=== PATIENT | female | born 1930 | race Caucasian/White ===

== ENCOUNTER 2016-12-08 17:31 | Inpatient (IN) | payer MEDICARE ==
[~2016-12-08] VITALS: Ht 167.6 cm; Wt 70.4 kg
[~2016-12-08 17:31] MED LIST: CALC600T34 PO; CELE10TA9 PO; DOCU100T9 PO; FIBECHW2 CHEW; GABA300C3 PO; HYDR-3129 PO; LEVO50TA51 PO; LISI2.5T3 PO; MULTCAP20 PO; TEMA15 PO; VITATAB25 PO; [UNRECOGNIZED DRUG - CODE] PO
[2016-12-08 17:34] VITALS: BP 124/58; PULSE 81; RESP 14; TEMP 98.1; O2SAT 98
--- NOTE | 2016-12-08 19:22 | PD ---
HPI Chief Complaint: Cold / Flu Symptoms Time Seen by Provider: 19:16 Travel History International Travel<30 days: No Contact w/Intl Traveler<30days: No Traveled to known affect area: No History of Present Illness HPI The patient is an 86 year old female who presents to the [facility] emergency department with a history of having pain all over with dizziness associated with and unsteady gait that began on Wednesday. She last took her usual pain medication for her chronic back pain at 3 pm. She took hydrocodone with acetaminophen. She denies vertigo. She has generalized weakness. She reports having nausea throughout the day today. She denies any vomiting. She reports that her last BM was this AM. She denies any blood in her stool or black or tarry stools. She denies having any changes to her medication regimen. She reports that her primary care physician is Dr. Gonzales. The patient reports that she has had a mild cough recently. The patient denies any recent fevers, congestion, neck pain, chest pain, shortness of breath, abdominal pain, diarrhea, urinary symptoms, or other neurologic symptoms. [facility] Past Medical History Narrative Medical The patient's past medical history is significant for chronic back pain, history of a seizure disorder, history of hyperlipidemia, history of cervical spine injury with surgery status post fall, history of being prediabetic, history of hypothyroid disorder, history of lumbar spinal stenosis. Blood Disorders: No Cancer: Yes (SKIN) Cardiovascular Problems: Yes Chemotherapy: No Cerebrovascular Accident: No Diabetes: Yes Endocrine: No Genitourinary: No Headaches: No Hepatitis: No Hiatal Hernia: No Hypertension: Yes Immune Disorder: No Musculoskeletal: Yes (ARTHRITIS) Neurologic: No Psychiatric: No Reproductive: No Respiratory: No Migraines: No Radiation Therapy: No Seizures: Yes (FORM OF EPILEPSY TAKES TEGRETOL) Thyroid Disease: Yes Menopausal: Yes Past Surgical History Narrative Surgical The patient's past surgical history is significant for cervical spine surgery. Abdominal Surgery: No AICD: No Arteriovenous Shunt: No Cardiac Surgery: No Ear Surgery: No Endocrine Surgery: No Eye Surgery: Yes (BILAT. CATARACT SX) Genitourinary Surgery: No Gynecologic Surgery: No Insulin Pump: No Joint Replacement: No Oral Surgery: No Pacemaker: No Thoracic Surgery: No Other Surgery: Yes (C SPINE SURGERY FOR DEGENERATIVE DISC) Social History Alcohol Use: No Tobacco Use: No Substance Use: No Allergies-Medications (Allergen,Severity, Reaction): Coded Allergies: Penicillin (Verified Allergy, Unknown, 12/08/16) Reported Meds & Prescriptions Reported Meds & Active Scripts Active Reported Vitamin D-1000 (Cholecalciferol) 1,000 Unit Tab 2,000 Units PO DAILY Hydrocodone-Acetaminophen 10-325 mg Tab 1 Tab PO Q4H PRN Gabapentin 300 Mg Cap 300 Mg PO TID Temazepam 15 Mg Cap 15 Mg PO HS PRN Levothyroxine (Levothyroxine Sodium) 50 Mcg Tab 50 Mcg PO DAILY Lovastatin 10 Mg Tab 10 Mg PO HS Calcium 600+D Plus Minerals (Calcium Carbonate-Vitamin D W/Minerals) 600-400 Mg- Unit Tab 1 Tab PO DAILY Aspirin 81 Mg Chew 81 Mg CHEW DAILY Lisinopril 2.5 Mg Tab 2.5 Mg PO DAILY Citalopram (Citalopram Hydrobromide) 10 Mg Tab 10 Mg PO DAILY Review of Systems Except as stated in HPI: all other systems reviewed are Neg General / Constitutional: No: Fever Eyes: No: Visual changes HENT: No: Headaches, Congestion Cardiovascular: No: Chest Pain or Discomfort Respiratory: Positive: Cough, No: Shortness of Breath Gastrointestinal: Positive: Nausea (1 st day.), No: Vomiting, Diarrhea, Abdominal Pain, Loss of Appetite Genitourinary: No: Urgency, Frequency, Dysuria Musculoskeletal: No: Pain Skin: No Rash Neurologic: Positive: Dizziness, No: Weakness, Focal Abnormalities, Change in Mentation, Slurred Speech, Sensory Disturbance Psychiatric: No: Depression Endocrine: No: Polydipsia Hematologic/Lymphatic: No: Easy Bruising Physical Exam Narrative General: The patient is a well-developed well-nourished female in no acute distress. Head and Neck exam: Head is normocephalic atraumatic. Eyes: EOMI, pupils are equal round and reactive to light. Nose: Midline septum with pink mucous membranes Mouth: Dentition unremarkable. Moist mucus membranes. Posterior oropharynx is not erythematous. No tonsillar hypertrophy. Uvula midline. Airway patent. Neck: No palpable lymphadenopathy. No nuchal rigidity. No thyromegaly. Cardiovascular: Irregularly irregular with rate control without murmurs, gallops, or rubs. No pulse deficit to the extremities. Lungs: Clear to auscultation on the right, decreased breath sounds in the left lung base. No wheezes, rhonchi, or crackles are audible. Abdomen: Soft, without tenderness to palpation in all 4 quadrants of the abdomen. No guarding, rebound, or rigidity. Normal bowel sounds are audible. Extremities: No clubbing, cyanosis, or edema. 2+ pulses in all 4 extremities. No calf tenderness on palpation. Back: No spinous process tenderness to palpation. No costovertebral angle tenderness to palpation. Neurologic Exam: Cranial nerves 2-12 were intact on exam. Strength is 5/5 in all 4 extremities. No sensory deficits noted. Skin Exam: No rash noted. Intact skin that is warm and dry. Data Data Last Documented VS Vital Signs Date Time Temp Pulse Resp B/P Pulse Ox O2 Delivery O2 Flow Rate FiO2 12/08/16 20:41 72 18 96 Room Air 12/08/16 20:28 98.2 132/78 Orders Electrocardiogram (12/08/16 19:28) Complete Blood Count With Diff (12/08/16 19:28) Comprehensive Metabolic Panel (12/08/16 19:28) Creatine Kinase (Cpk) (12/08/16 19:28) Ckmb (Isoenzyme) Profile (12/08/16 19:28) Troponin I (12/08/16 19:28) Prothrombin Time / Inr (Pt) (12/08/16 19:28) Act Partial Throm Time (Ptt) (12/08/16 19:28) C-Reactive Protein (Crp) (12/08/16 19:28) Lipase (12/08/16 19:28) Urinalysis - C+S If Indicated (12/08/16 19:28) Cath For Specimen (12/08/16 19:28) Magnesium (Mg) (12/08/16 19:28) Chest, Single Ap (12/08/16 19:28) Ct Brain W/O Iv Contrast(Rout) (12/08/16 19:28) Iv Access Insert/Monitor (12/08/16 19:28) Ecg Monitoring (12/08/16 19:28) Oximetry (12/08/16 19:28) Sodium Chlorid 0.9% 500 Ml Inj (Ns 500 M (12/08/16 19:30) Ondansetron Inj (Zofran Inj) (12/08/16 19:30) Ceftriaxone Inj (Rocephin Inj) (12/08/16 21:00) Azithromycin Inj (Zithromax Inj) (12/08/16 21:00) Lactic Acid Sepsis Protocol (12/08/16 20:55) Blood Culture (12/08/16 20:55) Admit Order (Ed Use Only) (12/08/16 21:43) Labs Laboratory Tests Test 12/08/16 12/08/16 12/08/16 20:17 20:40 21:20 White Blood Count 7.4 TH/MM3 Red Blood Count 4.12 MIL/MM3 Hemoglobin 12.5 GM/DL Hematocrit 36.5 % Mean Corpuscular Volume 88.5 FL Mean Corpuscular Hemoglobin 30.3 PG Mean Corpuscular Hemoglobin 34.3 % Concent Red Cell Distribution Width 13.6 % Platelet Count 204 TH/MM3 Mean Platelet Volume 8.9 FL Neutrophils (%) (Auto) 69.9 % Lymphocytes (%) (Auto) 16.9 % Monocytes (%) (Auto) 11.8 % Eosinophils (%) (Auto) 0.7 % Basophils (%) (Auto) 0.7 % Neutrophils # (Auto) 5.2 TH/MM3 Lymphocytes # (Auto) 1.2 TH/MM3 Monocytes # (Auto) 0.9 TH/MM3 Eosinophils # (Auto) 0.0 TH/MM3 Basophils # (Auto) 0.1 TH/MM3 CBC Comment DIFF FINAL Differential Comment Prothrombin Time 11.2 SEC Prothromb Time International 1.0 RATIO Ratio Activated Partial 24.6 SEC Thromboplast Time Sodium Level 134 MEQ/L Potassium Level 4.0 MEQ/L Chloride Level 99 MEQ/L Carbon Dioxide Level 23.1 MEQ/L Anion Gap 12 MEQ/L Blood Urea Nitrogen 14 MG/DL Creatinine 0.87 MG/DL Estimat Glomerular Filtration 62 ML/MIN Rate Random Glucose 87 MG/DL Calcium Level 9.2 MG/DL Magnesium Level 1.9 MG/DL Total Bilirubin 0.4 MG/DL Aspartate Amino Transf 17 U/L (AST/SGOT) Alanine Aminotransferase 18 U/L (ALT/SGPT) Alkaline Phosphatase 68 U/L Total Creatine Kinase 60 U/L Troponin I LESS THAN 0.02 NG/ML C-Reactive Protein 12.00 MG/DL Total Protein 7.6 GM/DL Albumin 3.7 GM/DL Lipase 53 U/L Urine Color YELLOW Urine Turbidity HAZY Urine pH 5.5 Urine Specific Cow[place] 1.023 Urine Protein 30 mg/dL Urine Glucose (UA) NEG mg/dL Urine Ketones 40 mg/dL Urine Occult Blood MOD Urine Nitrite POS Urine Bilirubin NEG Urine Urobilinogen 2.0 MG/DL Urine Leukocyte Esterase SMALL Urine RBC 2 /hpf Urine WBC 12 /hpf Urine Squamous Epithelial 1 /hpf Cells Urine Bacteria MANY /hpf Urine Hyaline Casts 3 /lpf Urine Mucus FEW /lpf Microscopic Urinalysis Comment CULTURE INDICATED Lactic Acid Level 1.5 mmol/L [facility] Medical Decision Making Medical Screen Exam Complete: Yes Emergency Medical Condition: Yes Medical Record Reviewed: Yes Interpretation(s) Last Impressions Head CT 12/08/161927 Signed Impressions: Service Date/Time: Thursday, December 08, 2016 20:44 - CONCLUSION: 1. No acute abnormality. 2. Age-related atrophy and suspected small vessel ischemic change in the white matter. Michael Foley MD Chest X-Ray 12/08/161927 Signed Impressions: Service Date/Time: Thursday, December 08, 2016 19:32 - CONCLUSION: Increased density in the left hilar region and at the left base likely related to consolidation and pneumonia. An underlying central lesion cannot be excluded. If the patient has signs of pneumonia it would be recommended the patient be treated appropriately and a follow up chest x-ray be obtained to ensure this area completely clears. If this area does not completely clear after appropriate treatment further evaluation could be performed. Michael Foley MD Differential Diagnosis Viral syndrome, versus pneumonia, versus urinary tract infection, versus electrolyte abnormality, versus acute coronary syndrome, versus intracranial abnormality. Narrative Course During the course of the patients emergency department visit, the patients history, examination, and differential diagnosis were reviewed with the patient. The patient had IV access obtained and blood work sent for analysis. The patient was placed on a cane weigher helper with oximetry and blood pressure monitoring. An EKG was done on arrival. The patient's EKG reveals a right bundle branch block which the patient has had previously, however she has frequent premature supraventricular contractions. The patient was provided normal saline a 500 mL bolus 1, Zofran 4 mg IV. The patients laboratory studies were reviewed and remarkable for a white count of 7.4, hemoglobin 12.5, platelets 204 with 11.8 monocytes. CMP is remarkable for a sodium of 134, GFR 62, CPK and troponin I are unremarkable, C-reactive protein is elevated at 12, lipase 53, PT PTT unremarkable Radiology studies were reviewed and remarkable for a chest x-ray that appears to show a consolidated infiltrate of the left lung. The patient will be given Rocephin 1 g IV, Zithromax [address] scan of the brain shows no acute abnormality. Age-related atrophy and suspected small vessel ischemic change in the white matter. Given the patient's unsteady gait and persistent nausea throughout the day, the patient will be admitted to the hospital for observation, and to start the patient on IV antibiotic for pneumonia. The patients results were discussed with the patient, including the plan of care. I explained that further testing and/ or monitoring is indicated based on the patients history, examination, and/ or laboratory findings. Therefore, I recommended admission for additional evaluation. The patient expressed understanding and was agreeable with this plan. The patient was admitted to the hospital in stable condition and sent to a bed under the care of the [facility] hospitalist. Physician Communication Physician Communication The patient's case was discussed with Dr. Rausch who did agree to admit the patient for further evaluation and treatment at this time. Diagnosis Primary Impression: Pneumonia Qualified Code: J18.1 - Pneumonia of left lower lobe due to infectious organism Additional Impressions: Unsteady gait Generalized weakness Admitting Information Admitting Physician Requests: Observation Denisha Edwards MD Dec 08, 2016 19:22
[2016-12-08] MEDS ORDERED: ONDANSETRON HCL 4 MG/2 ML VIAL IV PUSH ONE (19:30)
[2016-12-08] MEDS ORDERED: SODIUM CHLORID 0.9% 500 ML INJ 500 ML IV ONE (19:30)
--- NOTE | 2016-12-08 20:11 | RADRPT ---
EXAM DATE/TIME: 12/08/2016 19:32 [facility] COMPARISON: CHEST SINGLE AP, December 12, 2015, 6:18. INDICATIONS: Cough. MEDICAL HISTORY: Diabetes mellitus type II. SURGICAL HISTORY: None. ENCOUNTER: Initial ACUITY: 1 day PAIN SCORE: 0/10 LOCATION: Bilateral chest FINDINGS: Heart size normal. There is increased density in the left hilar region. There is also some increase d density at the left base. The right lung is grossly clear. Significant effusion is not seen. CONCLUSION: Increased density in the left hilar region and at the left base likely related to consolidation and p neumonia. An underlying central lesion cannot be excluded. If the patient has signs of pneumonia it would be recommended the patient be treated appropriately and a follow up chest x-ray be obtained to ensure this area completely clears. If this area does not completely clear after appropriate treatm ent further evaluation could be performed. Michael Foley MD on December 08, 2016 at 20:04 Board Certified Radiologist. This report was verified electronically.
[2016-12-08 20:27] VITALS: RESP 18; O2SAT 98
[2016-12-08 20:28] VITALS: BP 132/78; PULSE 75; RESP 18; TEMP 98.2; O2SAT 97
[2016-12-08] MEDS ORDERED: LEVO50TA4 PO (20:35)
[2016-12-08] MEDS ORDERED: GABA300C5 PO (20:35)
[2016-12-08] MEDS ORDERED: TEMA15CA PO (20:35)
[2016-12-08] MEDS ORDERED: LOVA10TA PO (20:35)
[2016-12-08] MEDS ORDERED: CITA10TA4 PO (20:35)
[2016-12-08] MEDS ORDERED: LISI2.5T3 PO (20:35)
[2016-12-08] MEDS ORDERED: CALCTAB33 PO (20:35)
[2016-12-08] MEDS ORDERED: HYDR-3583 PO (20:35)
[2016-12-08] MEDS ORDERED: VITA1000 PO (20:35)
[2016-12-08] MEDS ORDERED: ASPI81CH CHEW (20:35)
[2016-12-08 20:50] LABS: AUTOMATED NEUTROPHIL # 5.2 TH/MM3 (1.8-7.7); BASOPHIL # 0.1 TH/MM3 (0-0.2); BASOPHIL % 0.7 % (0.0-2.0); EOSINOPHIL % 0.7 % (0.0-4.0); HEMATOCRIT 36.5 % (35.0-46.0); HEMO FLAGS DIFF FINAL; LYMPH % 16.9 % (9.0-44.0); LYMPHOCYTE # 1.2 TH/MM3 (1.0-4.8); MEAN CELL VOLUME 88.5 FL (80.0-100.0); MEAN CORPUSCULAR HEMOGLOBIN 30.3 PG (27.0-34.0); MEAN CORPUSCULAR HGB CONC 34.3 % (32.0-36.0); MONO % 11.8 % (0.0-8.0); NEUT % 69.9 % (16.0-70.0); PLATELET COUNT 204 TH/MM3 (150-450); RED BLOOD COUNT 4.12 MIL/MM3 (4.00-5.30); RED CELL DISTRIBUTION WIDTH 13.6 % (11.6-17.2); WHITE BLOOD COUNT 7.4 TH/MM3 (4.0-11.0)
[2016-12-08] MEDS ORDERED: AZITHROMYCIN INJ 500 MG in SODIUM CHLOR 0.9% 250 ML INJ 250 ML IV ONE (21:00)
[2016-12-08] MEDS ORDERED: cefTRIAXone INJ 1,000 MG in SODIUM CHLORIDE 0.9% INJ 100 ML IV ONE (21:00)
[2016-12-08 21:02] LABS: APTT (PATIENT) 24.6 SEC (24.3-30.1); PROTHROMBIN TIME - PATIENT 11.2 SEC (9.8-11.6)
[2016-12-08 21:04] LABS: ANION GAP 12 MEQ/L (5-15); AST (GOT) 17 U/L (15-37); BICARBONATE 23.1 MEQ/L (21.0-32.0); BLOOD UREA NITROGEN 14 MG/DL (7-18); CHLORIDE 99 MEQ/L (98-107); GLOMERULAR FILTRATION RATE 62 ML/MIN (>89); MAGNESIUM 1.9 MG/DL (1.5-2.5); SODIUM (NA) 134 MEQ/L (136-145)
[2016-12-08 21:08] LABS: ALKALINE PHOSPHATASE 68 U/L (45-117); ALT (GPT) 18 U/L (10-53); TOTAL BILIRUBIN ADULT 0.4 MG/DL (0.2-1.0)
[2016-12-08 21:10] LABS: CREATINE KINASE 60 U/L (26-192)
--- NOTE | 2016-12-08 21:31 | RADRPT ---
EXAM DATE/TIME: 12/08/2016 20:44 [facility] COMPARISON: CT BRAIN W/O CONTRAST, September 09, 2012, 18:30. INDICATIONS : General malaise. RADIATION DOSE: 56.35 CTDIvol (mGy) MEDICAL HISTORY : Seizures. Hypertension. Cardiovascular disease SURGICAL HISTORY : None. ENCOUNTER: Initial ACUITY: 1 day PAIN SCALE: 4/10 LOCATION: cranial TECHNIQUE: Multiple contiguous axial images were obtained of the head. Using automated exposure control and adj ustment of the mA and/or kV according to patient size, radiation dose was kept as low as reasonably a chievable to obtain optimal diagnostic quality images. FINDINGS: CEREBRUM: The ventricles and cortical sulci are widened. There is decreased density in the cerebral white matte r. No evidence of midline shift, mass lesion, hemorrhage or acute infarction. No extra-axial fluid collections are seen. POSTERIOR FOSSA: The cerebellum and brainstem are intact. The 4th ventricle is midline. The cerebellopontine angle i s unremarkable. EXTRACRANIAL: The visualized portion of the orbits is intact. SKULL: The calvaria is intact. No evidence of skull fracture. CONCLUSION: 1. No acute abnormality. 2. Age-related atrophy and suspected small vessel ischemic change in the white matter. Michael Foley MD on December 08, 2016 at 21:29 Board Certified Radiologist. This report was verified electronically.
[2016-12-08 21:49] LABS: BACTERIA, URINE MANY /hpf; BLOOD, URINE MOD (NEG); COMMENT (UR) CULTURE INDICATED; CULTURE IF INDICATED CULTURE INDICATED; GLUCOSE,URINE NEG (NEG); HYALINE CAST, URINE 3 /lpf (RARE); KETONE, URINE 40 mg/dL (NEG); MUCUS URINE FEW /lpf (OCC); PH, URINE 5.5 (5.0-8.5); SQUAMOUS EPITHELIAL CELL URINE 1 /hpf (0-5); URINE COLOR YELLOW (YELLW/STRAW)
[2016-12-08 21:50] LABS: NITRITE,URINE POS (NEG)
[2016-12-08] MEDS ORDERED: SODIUM CHLORIDE 0.9% FLUSH 5 ML FLUSH FLUSH PRN (22:30)
[2016-12-08] MEDS ORDERED: TEMAZEPAM 15 MG CAP PO PRN (22:30)
[2016-12-08] MEDS ORDERED: NALOXONE HCL 0.4 MG/ML AMP IV PRN (22:30)
[2016-12-08] MEDS ORDERED: ACETAMINOPHEN 325 MG TAB PO PRN (22:30)
[2016-12-08] MEDS ORDERED: BISACODYL 10 MG SUPP PR PRN (22:30)
--- NOTE | 2016-12-08 22:37 | HHI.HP ---
HPI Service [facility] Hospitalists Primary Care Physician Umang Gonzales Admission Diagnosis Pneumonia, generalized weakness with unsteady gait Chief Complaint: weakness cough dizziness since wednesday Travel History International Travel<30 Days: No Contact w/Intl Traveler <30 Da: No Traveled to Known Affected Are: No History of Present Illness 86 y/o white female who has history of chronic neck and back pain who since wednesday has had increasing unsteady gait,nausea ,mild non productive cough . Family brought patient to er and on chest xray has left hilar infiltrate and also UTI will admit to observation and start antibiotics. Patient denies shortness of breath ,chest pain ,dysuria. Review of Systems Musculoskeletal: COMPLAINS OF: Joint pain, Muscle aches Other generalized weakness Past Family Social History Past Medical History chronic back pain,seizure disorder,hyperlipidemia,hypertension Past Surgical History cervical spine surgery,cataract Reported Medications hydrocodone 10/325 qid,gabapentin 300 tid,temazepam 15,[id number],asa 81, lisinopril 2.5,citalopram 10 vit d Allergies: Coded Allergies: Penicillin (Verified Allergy, Unknown, 12/08/16) Social History NS,ND Physical Exam Vital Signs Vital Signs Date Time Temp Pulse Resp B/P Pulse Ox O2 Delivery O2 Flow Rate FiO2 12/08/16 20:41 72 18 96 Room Air 12/08/16 20:28 98.2 75 18 132/78 97 Room Air 12/08/16 20:27 18 98 Room Air 12/08/16 17:34 98.1 81 14 124/58 98 Room Air Physical Exam GENERAL: This is a well-nourished, well-developed patient, in no apparent distress. SKIN: No rashes, ecchymoses or lesions. Cool and dry. HEAD: Atraumatic. Normocephalic. No temporal or scalp tenderness. EYES: Pupils equal round and reactive. Extraocular motions intact. No scleral icterus. No injection or drainage. ENT: Nose without bleeding, purulent drainage or septal hematoma. Throat without erythema, tonsillar hypertrophy or exudate. Uvula midline. Airway patent. NECK: Trachea midline. No JVD or lymphadenopathy. Supple, nontender, no meningeal signs. CARDIOVASCULAR: Regular rate and rhythm without murmurs, gallops, or rubs. RESPIRATORY: Decrease breath sounds left side. No wheezes, rales, or trace rhonchi. GASTROINTESTINAL: Abdomen soft, non-tender, nondistended. No hepato-splenomegaly , or palpable masses. No guarding. MUSCULOSKELETAL: Extremities without clubbing, cyanosis, or edema. No joint tenderness, effusion, or edema noted. No calf tenderness. Negative Homans sign bilaterally. NEUROLOGICAL: Awake and alert. Cranial nerves II through XII intact. Motor and sensory grossly within normal limits. Five out of 5 muscle strength in all muscle groups. Normal speech. Laboratory Laboratory Tests Test 12/08/16 12/08/16 12/08/16 20:17 20:40 21:20 White Blood Count 7.4 Red Blood Count 4.12 Hemoglobin 12.5 Hematocrit 36.5 Mean Corpuscular Volume 88.5 Mean Corpuscular Hemoglobin 30.3 Mean Corpuscular Hemoglobin 34.3 Concent Red Cell Distribution Width 13.6 Platelet Count 204 Mean Platelet Volume 8.9 Neutrophils (%) (Auto) 69.9 Lymphocytes (%) (Auto) 16.9 Monocytes (%) (Auto) 11.8 Eosinophils (%) (Auto) 0.7 Basophils (%) (Auto) 0.7 Neutrophils # (Auto) 5.2 Lymphocytes # (Auto) 1.2 Monocytes # (Auto) 0.9 Eosinophils # (Auto) 0.0 Basophils # (Auto) 0.1 CBC Comment DIFF FINAL Differential Comment Prothrombin Time 11.2 Prothromb Time International 1.0 Ratio Activated Partial 24.6 Thromboplast Time Sodium Level 134 Potassium Level 4.0 Chloride Level 99 Carbon Dioxide Level 23.1 Anion Gap 12 Blood Urea Nitrogen 14 Creatinine 0.87 Estimat Glomerular Filtration 62 Rate Random Glucose 87 Calcium Level 9.2 Magnesium Level 1.9 Total Bilirubin 0.4 Aspartate Amino Transf 17 (AST/SGOT) Alanine Aminotransferase 18 (ALT/SGPT) Alkaline Phosphatase 68 Total Creatine Kinase 60 Troponin I LESS THAN 0.02 C-Reactive Protein 12.00 Total Protein 7.6 Albumin 3.7 Lipase 53 Urine Color YELLOW Urine Turbidity HAZY Urine pH 5.5 Urine Specific [place] 1.023 Urine Protein 30 Urine Glucose (UA) NEG Urine Ketones 40 Urine Occult Blood MOD Urine Nitrite POS Urine Bilirubin NEG Urine Urobilinogen 2.0 Urine Leukocyte Esterase SMALL Urine RBC 2 Urine WBC 12 Urine Squamous Epithelial 1 Cells Urine Bacteria MANY Urine Hyaline Casts 3 Urine Mucus FEW Microscopic Urinalysis Comment CULTURE INDICATED Lactic Acid Level 1.5 Date/Time Procedure Status Source Growth 12/08/16 21:20 Aerobic Blood Culture Received Blood Peripheral Pending 12/08/16 21:20 Anaerobic Blood Culture Received Blood Peripheral Pending 12/08/16 20:40 Urine Culture Received Urine Clean Catch Pending Result Diagram: 12/08/16201612/08/162016 Imaging Last [address] 12/08/161927 Signed Impressions: Service Date/Time: Thursday, December 08, 2016 20:44 - CONCLUSION: 1. No acute abnormality. 2. Age-related atrophy and suspected small vessel ischemic change in the white matter. Michael Foley MD Chest X-Ray 12/08/161927 Signed Impressions: Service Date/Time: Thursday, December 08, 2016 19:32 - CONCLUSION: Increased density in the left hilar region and at the left base likely related to consolidation and pneumonia. An underlying central lesion cannot be excluded. If the patient has signs of pneumonia it would be recommended the patient be treated appropriately and a follow up chest x-ray be obtained to ensure this area completely clears. If this area does not completely clear after appropriate treatment further evaluation could be performed. Michael Foley MD Course in er started on rocephin and zithromax urine suggest UTI Assessment and Plan Problem List: (1) Pneumonia Status: Acute Plan: continue rocephin and zithromax will need CT thorax if no improvement (2) Generalized weakness Status: Acute Plan: probably related to pneumonia and UTI (3) UTI (urinary tract infection) Status: Acute Plan: continue rocephin for now (4) Unsteady gait Status: Acute Plan: probably related to pneumonia and UTI CT head no acute changes (5) SPINAL STENOSIS, LUMBAR REGION Status: Chronic Plan: on chronic hydrocodone Assessment and Plan further plan as case progresses if feels better possible discharge tomorrow on PO antibiotics Code Status full Discussed Condition With patient and daughter Problem Qualifiers (1) Pneumonia: Qualified Code: J18.1 - Pneumonia of left lower lobe due to infectious organism Jase Cherry MD Dec 08, 2016 22:37
[2016-12-08] MEDS ORDERED: PILL SPLITTER OTHER PRN (23:00)
[2016-12-08 23:27] VITALS: BP 136/58; TEMP 98.4
[2016-12-09] VITALS (7 sets, daily range): BP systolic 101–139; BP diastolic 52–70; PULSE 53–71; RESP 18–20; TEMP 97.2–99; O2SAT 95–100
[2016-12-09] MEDS: ACETAMINOPHEN/HYDROcodone 325 MG/10 MG TAB PO PRN (00:21)
[2016-12-09] MEDS: LEVOTHYROXINE SODIUM 50 MCG TAB PO SCH (06:24)
[2016-12-09] MEDS: CITALOPRAM HYDROBROMIDE 20 MG TAB PO SCH (08:58)
[2016-12-09] MEDS: GABAPENTIN 300 MG CAP PO SCH ×3 (08:58→17:45)
[2016-12-09] MEDS: ASPIRIN 81 MG CHEW TAB CHEW SCH (08:58)
[2016-12-09] MEDS: LISINOPRIL 5 MG TAB PO SCH (08:59)
[2016-12-09] MEDS: CALCIUM/VITAMIN D 250 MG/125 U TAB PO SCH (08:59)
[2016-12-09] MEDS ORDERED: MINERALS PO SCH (09:00)
[2016-12-09] MEDS ORDERED: [UNRECOGNIZED DRUG - OTHER] PO SCH (09:00)
[2016-12-09] MEDS: CHOLECALCIFEROL (VIT D3) 1000 UNIT TAB PO SCH (09:00)
[2016-12-09] MEDS ORDERED: CALCIUM CARBONATE VITAMIN D PO SCH (09:00)
[2016-12-09] MEDS: SODIUM CHLORIDE 0.9% FLUSH 5 ML FLUSH FLUSH SCH ×2 (09:00→20:45)
--- NOTE | 2016-12-09 15:55 | EKG ---
Date Performed: 12/08/2016 Time Performed: 20:04:14 PTAGE: 86 years EKG: Sinus rhythm WITH FREQUENT SUPRAVENTRICULAR PREMATURE COMPLEXES RIGHT BUNDLE BRANCH BLOCK Compared to prior george ng no significant change ABNORMAL ECG PREVIOUS TRACING : 12/12/2015 06.56 DOCTOR: Jocelyne Kilpatrick Interpretating Date/Time 12/09/2016 15:54:00
--- NOTE | 2016-12-09 16:41 | HHI.PR ---
Subjective Remarks Increased confusion from baseline. Pt has occasional non-productive cough. Pt fatigued today. Objective Vitals Vital Signs Date Time Temp Pulse Resp B/P Pulse Ox O2 Delivery O2 Flow Rate FiO2 12/09/16 15:25 97.3 58 18 131/69 98 12/09/16 11:03 98.3 66 20 129/58 99 12/09/16 08:52 71 139/70 12/09/16 07:17 97.2 53 20 117/56 100 12/09/16 03:10 98.4 60 19 106/52 100 12/09/16 00:18 98.7 67 18 123/55 95 12/08/16 23:27 98.4 72 18 136/58 96 12/08/16 20:41 72 18 96 Room Air 12/08/16 20:28 98.2 75 18 132/78 97 Room Air 12/08/16 20:27 18 98 Room Air 12/08/16 17:34 98.1 81 14 124/58 98 Room Air 12/08/16 12/08/16 12/09/16 14:59 22:59 06:59 Intake Total 360 ml Balance 360 ml Intake Oral 360 ml Result Diagram: 12/08/16201612/08/162016 Imaging Last [address] 12/08/161927 Signed Impressions: Service Date/Time: Thursday, December 08, 2016 20:44 - CONCLUSION: 1. No acute abnormality. 2. Age-related atrophy and suspected small vessel ischemic change in the white matter. Michael Foley MD Chest X-Ray 12/08/161927 Signed Impressions: Service Date/Time: Thursday, December 08, 2016 19:32 - CONCLUSION: Increased density in the left hilar region and at the left base likely related to consolidation and pneumonia. An underlying central lesion cannot be excluded. If the patient has signs of pneumonia it would be recommended the patient be treated appropriately and a follow up chest x-ray be obtained to ensure this area completely clears. If this area does not completely clear after appropriate treatment further evaluation could be performed. Michael oFley MD Objective Remarks GENERAL: This is a well-nourished, well-developed patient, in no apparent distress. CARDIOVASCULAR: Regular rate and rhythm without murmurs, gallops, or rubs. RESPIRATORY: Clear to auscultation. Breath sounds equal bilaterally. No wheezes , rales, or rhonchi. GASTROINTESTINAL: Abdomen soft, non-tender, nondistended. Normal active bowel sounds MUSCULOSKELETAL: Extremities without clubbing, cyanosis, or edema. NEURO: Alert & Oriented x3, but confused at times A/P Problem List: (1) Pneumonia Status: Acute Plan: - CXR (12/09/16) shows abnormal density at left perihilar region - obtain CT chest - repeat labs in AM - obtain urine antigen for pneumococcal and legionella - supplemental oxygen - continue IV rocephin and PO azithromycin - sputum studies - prn duonebs - blood cx (12/09/16) --> NGTD (2) Generalized weakness Status: Acute Plan: - with unsteady gait - probably related to pneumonia and UTI - request PT evaluation (3) UTI (urinary tract infection) Status: Acute Plan: - continue rocephin for now - urine cx (12/08/16) --> gram negative rods, follow cx results (4) SPINAL STENOSIS, LUMBAR REGION Status: Chronic Plan: on chronic hydrocodone Problem Qualifiers (1) Pneumonia: Qualified Code: J18.1 - Pneumonia of left lower lobe due to infectious organism Michael Mosher DO Dec 09, 2016 16:41
[2016-12-09] MEDS: NS + KCL 20 MEQ INJ 1,000 ML IV SCH (17:43)
--- NOTE | 2016-12-09 17:44 | RADRPT ---
EXAM DATE/TIME: 12/09/2016 17:25 [facility] COMPARISON: CHEST SINGLE AP, December 08, 2016, 19:32. INDICATIONS : Mass left perihilar region. RADIATION DOSE: 3.63 CTDIvol (mGy) MEDICAL HISTORY : Seizures. Cardiovascular disease Hypertension. SURGICAL HISTORY : None. ENCOUNTER: Subsequent ACUITY: 1 day PAIN SCALE: 0/10 LOCATION: chest TECHNIQUE: Volumetric scanning of the chest was performed. Using automated exposure control and adjustment of t he mA and/or kV according to patient size, radiation dose was kept as low as reasonably achievable to obtain optimal diagnostic quality images. FINDINGS: There is alveolar disease in the superior segment left lower lobe most characteristic of pneumonia. F ollowup examination is recommended if clinically indicated. No pulmonary nodules are identified. No p leural effusions are identified. Biapical pleural thickening is present. Multiple calcified granuloma s are present in the right lung. Examination of the mediastinum demonstrates no abnormally enlarged lymph nodes by CT criteria. No axi llary or hilar abnormalities are identified. Coronary artery calcifications are present. The visualiz ed upper abdomen demonstrates no abnormality. CONCLUSION: 1. Left lower lobe pneumonia. Followup examination is recommended if clinically indicated. Shaheen Leong MD on December 09, 2016 at 17:39 Board Certified Radiologist. This report was verified electronically.
[2016-12-09] MEDS: PRAVASTATIN SOD 10 MG TAB PO SCH (20:45)
[2016-12-09] MEDS: cefTRIAXone INJ 1,000 MG in SODIUM CHLORIDE 0.9% INJ 100 ML IV SCH (20:47)
[2016-12-09] MEDS ORDERED: AZITHROMYCIN INJ 500 MG in SODIUM CHLOR 0.9% 250 ML INJ 250 ML IV SCH (23:00)
[2016-12-10] VITALS: BP 121/56; PULSE 65; RESP 18; TEMP 97.9; O2SAT 98
[2016-12-10] MEDS: ACETAMINOPHEN/HYDROcodone 325 MG/10 MG TAB PO PRN ×4 (02:04→21:45)
[2016-12-10 04:00] VITALS: BP 107/54; PULSE 53; RESP 18; TEMP 97.9; O2SAT 99
[2016-12-10] MEDS: NS + KCL 20 MEQ INJ 1,000 ML IV SCH (04:51)
[2016-12-10 06:15] LABS: AUTOMATED NEUTROPHIL # 2.7 TH/MM3 (1.8-7.7); BASOPHIL % 0.8 % (0.0-2.0); EOSINOPHIL # 0.2 TH/MM3 (0-0.4); EOSINOPHIL % 4.3 % (0.0-4.0); HEMATOCRIT 31.2 % (35.0-46.0); HEMO FLAGS DIFF FINAL; LYMPHOCYTE # 1.7 TH/MM3 (1.0-4.8); MEAN CELL VOLUME 89.3 FL (80.0-100.0); MEAN CORPUSCULAR HEMOGLOBIN 30.3 PG (27.0-34.0); MONO % 14.5 % (0.0-8.0); NEUT % 49.4 % (16.0-70.0); PLATELET COUNT 212 TH/MM3 (150-450); RED CELL DISTRIBUTION WIDTH 13.7 % (11.6-17.2); WHITE BLOOD COUNT 5.5 TH/MM3 (4.0-11.0)
[2016-12-10] MEDS: LEVOTHYROXINE SODIUM 50 MCG TAB PO SCH (06:40)
[2016-12-10 06:45] LABS: BICARBONATE 24.5 MEQ/L (21.0-32.0); MAGNESIUM 1.9 MG/DL (1.5-2.5); POTASSIUM 4.4 MEQ/L (3.5-5.1)
[2016-12-10 08:00] VITALS: BP 116/58; PULSE 57; RESP 20; TEMP 97.4; O2SAT 99
--- NOTE | 2016-12-10 08:24 | RADRPT ---
EXAM DATE/TIME: 12/10/2016 08:08 [facility] COMPARISON: CHEST SINGLE AP, December 08, 2016, 19:32. INDICATIONS : Pneumonia. MEDICAL HISTORY : Seizures. Cardiovascular disease. Hypertension. SURGICAL HISTORY : None. ENCOUNTER: Subsequent ACUITY: 2 days PAIN SCORE: 0/10 LOCATION: chest FINDINGS: PA and lateral views of the chest demonstrate left lower lobe infiltrate extending into the superior segment. The cardiomediastinal contours are unremarkable. Osseous structures are intact. CONCLUSION: 1. Left lower lobe pneumonia. Recommend medical treatment and followup to resolution. Karson Blum MD on December 10, 2016 at 8:22 Board Certified Radiologist. This report was verified electronically.
[2016-12-10] MEDS: CALCIUM/VITAMIN D 250 MG/125 U TAB PO SCH (10:21)
[2016-12-10] MEDS: GABAPENTIN 300 MG CAP PO SCH ×3 (10:21→17:33)
[2016-12-10] MEDS: LISINOPRIL 5 MG TAB PO SCH (10:21)
[2016-12-10] MEDS: CHOLECALCIFEROL (VIT D3) 1000 UNIT TAB PO SCH (10:21)
[2016-12-10] MEDS: CITALOPRAM HYDROBROMIDE 20 MG TAB PO SCH (10:22)
[2016-12-10] MEDS: ASPIRIN 81 MG CHEW TAB CHEW SCH (10:22)
[2016-12-10] MEDS: SODIUM CHLORIDE 0.9% FLUSH 5 ML FLUSH FLUSH SCH ×2 (10:23→21:46)
[2016-12-10 12:00] VITALS: BP 107/59; PULSE 67; RESP 20; TEMP 97.7; O2SAT 98
--- NOTE | 2016-12-10 15:15 | HHI.PR ---
Subjective Remarks Pt has been feeling "warm" today but no documented fevers Denies any chills Not much of a cough today Objective Vitals Vital Signs Date Time Temp Pulse Resp B/P Pulse Ox O2 Delivery O2 Flow Rate FiO2 12/10/16 12:00 97.7 67 20 107/59 98 12/10/16 08:15 Nasal Cannula 2.00 12/10/16 08:00 97.4 57 20 116/58 99 12/10/16 04:00 97.9 53 18 107/54 99 12/10/16 04:00 Nasal Cannula 2.00 12/10/16 00:00 97.9 65 18 121/56 98 12/10/16 00:00 Nasal Cannula 2.00 12/09/16 20:05 99.0 64 20 101/55 98 12/09/16 15:25 97.3 58 18 131/69 98 12/09/16 12/09/16 12/10/16 15:00 23:00 07:00 Intake Total 1223 ml Balance 1223 ml Intake Oral 360 ml IV Total 863 ml # Voids 1 2 # Bowel Movements 0 Result Diagram: 12/10/16 0542 12/10/16 0542 Other Results Microbiology Date/Time Procedure Status Source Growth 12/09/16 17:00 Legionella Antigen - Final Complete Urine Random Urine PRESUMPTIVE NEGATIVE FOR LEGIONELLA P... 12/09/16 17:00 Streptococcus pneumoniae Antigen (M - Final Complete Urine Random Urine PRESUMPTIVE NEGATIVE FOR STREPTOCOCCU... 12/10/16 05:42 Aerobic Blood Culture Received Blood Peripheral Pending 12/10/16 05:42 Anaerobic Blood Culture Received Blood Peripheral Pending Laboratory Tests Test 12/08/16 12/08/16 12/08/16 12/10/16 20:17 20:40 21:20 05:42 Prothrombin Time 11.2 SEC Prothromb Time International 1.0 RATIO Ratio Activated Partial 24.6 SEC Thromboplast Time Sodium Level 134 MEQ/L 139 MEQ/L Potassium Level 4.0 MEQ/L 4.4 MEQ/L Chloride Level 99 MEQ/L 106 MEQ/L Carbon Dioxide Level 23.1 MEQ/L 24.5 MEQ/L Anion Gap 12 MEQ/L 9 MEQ/L Blood Urea Nitrogen 14 MG/DL 15 MG/DL Creatinine 0.87 MG/DL 0.74 MG/DL Estimat Glomerular Filtration 62 ML/MIN 75 ML/MIN Rate Random Glucose 87 MG/DL 110 MG/DL Calcium Level 9.2 MG/DL 8.3 MG/DL Magnesium Level 1.9 MG/DL 1.9 MG/DL Total Bilirubin 0.4 MG/DL Aspartate Amino Transf 17 U/L (AST/SGOT) Alanine Aminotransferase 18 U/L (ALT/SGPT) Alkaline Phosphatase 68 U/L Total Creatine Kinase 60 U/L Troponin I LESS THAN 0.02 NG/ML C-Reactive Protein 12.00 MG/DL Total Protein 7.6 GM/DL Albumin 3.7 GM/DL Lipase 53 U/L White Blood Count 7.4 TH/MM3 5.5 TH/MM3 Red Blood Count 4.12 MIL/MM3 3.50 MIL/MM3 Hemoglobin 12.5 GM/DL 10.6 GM/DL Hematocrit 36.5 % 31.2 % Mean Corpuscular Volume 88.5 FL 89.3 FL Mean Corpuscular Hemoglobin 30.3 PG 30.3 PG Mean Corpuscular Hemoglobin 34.3 % 34.0 % Concent Red Cell Distribution Width 13.6 % 13.7 % Platelet Count 204 TH/MM3 212 TH/MM3 Mean Platelet Volume 8.9 FL 8.8 FL Neutrophils (%) (Auto) 69.9 % 49.4 % Lymphocytes (%) (Auto) 16.9 % 31.0 % Monocytes (%) (Auto) 11.8 % 14.5 % Eosinophils (%) (Auto) 0.7 % 4.3 % Basophils (%) (Auto) 0.7 % 0.8 % Neutrophils # (Auto) 5.2 TH/MM3 2.7 TH/MM3 Lymphocytes # (Auto) 1.2 TH/MM3 1.7 TH/MM3 Monocytes # (Auto) 0.9 TH/MM3 0.8 TH/MM3 Eosinophils # (Auto) 0.0 TH/MM3 0.2 TH/MM3 Basophils # (Auto) 0.1 TH/MM3 0.0 TH/MM3 CBC Comment DIFF FINAL DIFF FINAL Differential Comment Urine Color YELLOW Urine Turbidity HAZY Urine pH 5.5 Urine Specific [place] 1.023 Urine Protein 30 mg/dL Urine Glucose (UA) NEG mg/dL Urine Ketones 40 mg/dL Urine Occult Blood MOD Urine Nitrite POS Urine Bilirubin NEG Urine Urobilinogen 2.0 MG/DL Urine Leukocyte Esterase SMALL Urine RBC 2 /hpf Urine WBC 12 /hpf Urine Squamous Epithelial 1 /hpf Cells Urine Bacteria MANY /hpf Urine Hyaline Casts 3 /lpf Urine Mucus FEW /lpf Microscopic Urinalysis Comment CULTURE INDICATED Lactic Acid Level 1.5 mmol/L Imaging Last Impressions Chest X-Ray 12/10/16 0800 Signed Impressions: Service Date/Time: December 08:08 - CONCLUSION: 1. Left lower lobe pneumonia. Recommend medical treatment and followup to resolution. Karson Blum MD Chest CT 12/09/16 0000 Signed Impressions: Service Date/Time: Friday, December 09, 2016 17:25 - CONCLUSION: 1. Left lower lobe pneumonia. Followup examination is recommended if clinically indicated. Shaheen Leong MD Head CT 12/08/161927 Signed Impressions: Service Date/Time: Thursday, December 08, 2016 20:44 - CONCLUSION: 1. No acute abnormality. 2. Age-related atrophy and suspected small vessel ischemic change in the white matter. Michael Foley MD Last [address] 12/08/161927 Signed Impressions: Service Date/Time: Thursday, December 08, 2016 20:44 - CONCLUSION: 1. No acute abnormality. 2. Age-related atrophy and suspected small vessel ischemic change in the white matter. Michael Foley MD Chest X-Ray 12/08/161927 Signed Impressions: Service Date/Time: Thursday, December 08, 2016 19:32 - CONCLUSION: Increased density in the left hilar region and at the left base likely related to consolidation and pneumonia. An underlying central lesion cannot be excluded. If the patient has signs of pneumonia it would be recommended the patient be treated appropriately and a follow up chest x-ray be obtained to ensure this area completely clears. If this area does not completely clear after appropriate treatment further evaluation could be performed. Michael Foley MD Objective Remarks General: NAD, AAOx3 Chest: Coarse breath sounds on the left lower chest Cardiac: Regular Abd: Soft, nondistended Ext: No edema A/P Problem List: (1) Pneumonia Status: Acute Plan: - CXR (12/09/16) shows abnormal density at left perihilar region - CT chest (12/09/16) --> Left lower lobe pneumonia. - Urine antigen for pneumococcal and legionella are negative. - supplemental oxygen - continue IV Rocephin and PO azithromycin - sputum studies are ordered - prn duonebs - blood cx (12/09/16) --> NGTD - Pt will need a repeat Chest CT as an outpt in around 4-6 weeks to confirm that the pneumonia has cleared and no evidence of any mass which lead to post- obstructive pneumonia. (2) Generalized weakness Status: Acute Plan: - with unsteady gait - probably related to pneumonia and UTI - PT evaluation is pending. (3) UTI (urinary tract infection) Status: Acute Plan: - continue Rocephin - urine cx (12/08/16) --> E. colil, araiza sensitive (4) SPINAL STENOSIS, LUMBAR REGION Status: Chronic Plan: on chronic hydrocodone Assessment and Plan Patient examined. Assessment and plan formulated with Dayanna Stevenson PA-C. I agree with the above. Problem Qualifiers (1) Pneumonia: Qualified Code: J18.1 - Pneumonia of left lower lobe due to infectious organism Dayanna Stevenson Dec 10, 2016 15:15 Michael Mosher DO Dec 16, 2016 18:20
[2016-12-10] MEDS ORDERED: WALKER WHEELS/F1 MIS (15:42)
[2016-12-10 16:00] VITALS: BP 102/52; PULSE 54; RESP 20; TEMP 97.9; O2SAT 100
[2016-12-10 20:00] VITALS: BP 105/52; PULSE 58; RESP 20; TEMP 97.9; O2SAT 98
[2016-12-10] MEDS: PRAVASTATIN SOD 10 MG TAB PO SCH (21:45)
[2016-12-10] MEDS: cefTRIAXone INJ 1,000 MG in SODIUM CHLORIDE 0.9% INJ 100 ML IV SCH (21:45)
[2016-12-10] MEDS ORDERED: AZITHROMYCIN 250 MG TAB PO SCH (23:00)
[2016-12-11] VITALS: BP 125/60; PULSE 56; RESP 16; TEMP 97.8; O2SAT 98
[2016-12-11 04:08] VITALS: BP 139/63; PULSE 63; RESP 16; TEMP 98.1; O2SAT 100
[2016-12-11] MEDS: LEVOTHYROXINE SODIUM 50 MCG TAB PO SCH (05:21)
[2016-12-11 07:01] LABS: BICARBONATE 27.6 MEQ/L (21.0-32.0); MAGNESIUM 1.8 MG/DL (1.5-2.5); POTASSIUM 4.5 MEQ/L (3.5-5.1)
[2016-12-11 07:46] LABS: AUTOMATED NEUTROPHIL # 1.9 TH/MM3 (1.8-7.7); BASOPHIL # 0.1 TH/MM3 (0-0.2); BASOPHIL % 1.2 % (0.0-2.0); EOSINOPHIL # 0.3 TH/MM3 (0-0.4); EOSINOPHIL % 7.1 % (0.0-4.0); HEMATOCRIT 30.8 % (35.0-46.0); LYMPH % 39.8 % (9.0-44.0); MEAN CELL VOLUME 89.8 FL (80.0-100.0); MEAN CORPUSCULAR HEMOGLOBIN 29.5 PG (27.0-34.0); MEAN CORPUSCULAR HGB CONC 32.8 % (32.0-36.0); MONO % 13.6 % (0.0-8.0); NEUT % 38.3 % (16.0-70.0); PLATELET COUNT 200 TH/MM3 (150-450); RED BLOOD COUNT 3.43 MIL/MM3 (4.00-5.30); RED CELL DISTRIBUTION WIDTH 14.3 % (11.6-17.2); WHITE BLOOD COUNT 4.9 TH/MM3 (4.0-11.0)
[2016-12-11 07:49] LABS: HEMO FLAGS AUTO DIFF
[2016-12-11 08:10] VITALS: BP 134/62; PULSE 59; RESP 18; TEMP 98.1; O2SAT 97
[2016-12-11] MEDS: CALCIUM/VITAMIN D 250 MG/125 U TAB PO SCH (08:36)
[2016-12-11] MEDS: CHOLECALCIFEROL (VIT D3) 1000 UNIT TAB PO SCH (08:36)
[2016-12-11] MEDS: LISINOPRIL 5 MG TAB PO SCH (08:36)
[2016-12-11] MEDS: GABAPENTIN 300 MG CAP PO SCH ×2 (08:36→12:58)
[2016-12-11] MEDS: CITALOPRAM HYDROBROMIDE 20 MG TAB PO SCH (08:36)
[2016-12-11] MEDS: ASPIRIN 81 MG CHEW TAB CHEW SCH (08:37)
[2016-12-11] MEDS: SODIUM CHLORIDE 0.9% FLUSH 5 ML FLUSH FLUSH SCH (08:37)
[2016-12-11 09:52] LABS: SCAN/DIFF AUTO DIFF CONFIRMED
[2016-12-11 09:55] LABS: PLATELET ESTIMATE SMEAR NORMAL (NORMAL); PLATELET MORPHOLOGY NORMAL (NORMAL)
[2016-12-11 11:59] VITALS: BP 144/65; PULSE 65; RESP 18; TEMP 98; O2SAT 97
[2016-12-11] MEDS: ACETAMINOPHEN/HYDROcodone 325 MG/10 MG TAB PO PRN (13:01)
[2016-12-11] MEDS ORDERED: NEBULIZER1 MI1 (14:37)
[2016-12-11] MEDS ORDERED: ALBU0.08 NEB (14:41)
[2016-12-11] MEDS ORDERED: IPRA0.02 NEB (14:41)
[2016-12-11] MEDS ORDERED: CLIN1CAP6 PO (14:41)
--- NOTE | 2016-12-11 14:46 | HHI.DS ---
Discharge Summary Admission Date Dec 10, 2016 at 09:15 Discharge Date: Dec 11, 2016 Admitting Diagnosis Pneumonia, generalized weakness with unsteady gait (1) Pneumonia Diagnosis: Principal (2) Generalized weakness Diagnosis: Principal (3) UTI (urinary tract infection) Diagnosis: Principal (4) SPINAL STENOSIS, LUMBAR REGION Diagnosis: Secondary Brief History 86 y/o white female who has history of chronic neck and back pain who since wednesday has had increasing unsteady gait,nausea ,mild non productive cough . Family brought patient to er and on chest xray has left hilar infiltrate and also UTI will admit to observation and start antibiotics. Patient denies shortness of breath ,chest pain ,dysuria. CBC/BMP: 12/11/16 0518 12/11/16 0518 Significant Findings Laboratory Tests Test 12/08/16 12/08/16 12/10/16 12/11/16 20:17 20:40 05:42 05:18 Sodium Level 134 MEQ/L (136-145) Estimat Glomerular Filtration 62 ML/MIN (>89) 75 ML/MIN (>89) 78 ML/MIN (>89) Rate Troponin I LESS THAN 0.02 NG/ML (0.02-0.05) C-Reactive Protein 12.00 MG/DL (0.00-0.30) Lipase 53 U/L (73-393) Monocytes (%) (Auto) 11.8 % 14.5 % 13.6 % (0.0-8.0) (0.0-8.0) (0.0-8.0) Urine Turbidity HAZY (CLEAR) Urine Protein 30 mg/dL (NEG-TRACE) Urine Ketones 40 mg/dL (NEG) Urine Occult Blood MOD (NEG) Urine Nitrite POS (NEG) Urine Leukocyte Esterase SMALL (NEG) Urine WBC 12 /hpf (0-5) Urine Bacteria MANY /hpf (NONE) Urine Mucus FEW /lpf (OCC) Red Blood Count 3.50 MIL/MM3 3.43 MIL/MM3 (4.00-5.30) (4.00-5.30) Hemoglobin 10.6 GM/DL 10.1 GM/DL (11.6-15.3) (11.6-15.3) Hematocrit 31.2 % 30.8 % (35.0-46.0) (35.0-46.0) Eosinophils (%) (Auto) 4.3 % (0.0-4.0) 7.1 % (0.0-4.0) Random Glucose 110 MG/DL (74-106) Calcium Level 8.3 MG/DL (8.5-10.1) Chloride Level 109 MEQ/L (98-107) Anion Gap 4 MEQ/L (5-15) Imaging Last Impressions Chest X-Ray 12/10/16 0800 Signed Impressions: Service Date/Time: December 08:08 - CONCLUSION: 1. Left lower lobe pneumonia. Recommend medical treatment and followup to resolution. Karson Blum MD Chest CT 12/09/16 0000 Signed Impressions: Service Date/Time: Friday, December 09, 2016 17:25 - CONCLUSION: 1. Left lower lobe pneumonia. Followup examination is recommended if clinically indicated. Shaheen Leong MD Head CT 12/08/16 1928 Signed Impressions: Service Date/Time: Thursday, December 08, 2016 20:44 - CONCLUSION: 1. No acute abnormality. 2. Age-related atrophy and suspected small vessel ischemic change in the white matter. Michael Foley MD PE at Discharge General: NAD, AAOx3 Chest: Coarse breath sounds on the left lower chest Cardiac: Regular Abd: Soft, nondistended Ext: No edema Hospital Course (1) Pneumonia Status: Acute Plan: - CXR (12/09/16) shows abnormal density at left perihilar region - CT chest (12/09/16) --> Left lower lobe pneumonia. - Urine antigen for pneumococcal and legionella are negative. - supplemental oxygen, removed 12/11/16 and pt is tolerating RA - continue IV Rocephin and PO azithromycin (12/08/16 - 12/10/16) - clindamycin 600mg TID x 5d - prn duonebs - blood cx (12/09/16) --> NGTD - Pt will need a repeat Chest CT as an outpt in around 4-6 weeks to confirm that the pneumonia has cleared and no evidence of any mass which lead to post- obstructive pneumonia. (2) Generalized weakness Status: Acute Plan: - ambulated well with PT (3) UTI (urinary tract infection) Status: Acute Plan: - urine cx (12/08/16) --> E. colil, araiza sensitive - Pt treated with 3 days of rocephin (4) SPINAL STENOSIS, LUMBAR REGION Status: Chronic Plan: on chronic hydrocodone Pt Condition on Discharge: Stable Discharge Disposition: Discharge Home Discharge Instructions DIET: Follow Instructions for: As Tolerated, No Restrictions Activities you can perform: Regular-No Restrictions Follow up Referrals: PCP Follow-up - [address] Polo Gonzales New Medications: Albuterol Neb (Albuterol Neb) 2.5 Mg/3 Ml Neb 2.5 MG NEB QID NEB PRN SOB/WHEEZING #60 Ref 0 NEBULE Clindamycin (Clindamycin) 300 Mg Cap 600 MG PO Q8H Infection #15 Ref 0 CAP Ipratropium Neb (Ipratropium Neb) 0.5 Mg/2.5 Ml Amp 0.5 MG NEB Q6HR NEB use with albuterol PRN SOB/WHEEZING #60 Ref 0 NEBULE Nebulizer (Nebulizer) 1 Mis Mis 1 EA .ROUTE DIRECTED Breathing Treatment #1 Ref 0 EA Walker with Front Wheels (Walker with Front Wheels) 1 Mis Mis 1 EA .ROUTE DIRECTED #1 Ref 0 EA Continued Medications: Aspirin (Aspirin) 81 Mg Chew 81 MG CHEW DAILY Ref 0 TAB Calcium Carbonate-Vitamin D W/Minerals (Calcium 600+D Plus Minerals) 600-400 Mg- Unit Tab 1 TAB PO DAILY Nutritional Supplement Ref 0 TAB Cholecalciferol (Vitamin D-1000) 1,000 Unit Tab 2000 UNITS PO DAILY Nutritional Supplement #1 Ref 0 BOTTLE Citalopram (Citalopram) 10 Mg Tab 10 MG PO DAILY Control Depression #30 Ref 0 TAB Gabapentin (Gabapentin) 300 Mg Cap 300 MG PO TID #90 Ref 0 CAP Hydrocodone-Acetaminophen (Hydrocodone-Acetaminophen) 10-325 mg Tab 1 TAB PO Q4H PRN PAIN Ref 0 TAB Levothyroxine (Levothyroxine) 50 Mcg Tab 50 MCG PO DAILY Thyroid #30 Ref 0 TAB Lisinopril (Lisinopril) 2.5 Mg Tab 2.5 MG PO DAILY #30 Ref 0 TAB Lovastatin (Lovastatin) 10 Mg Tab 10 MG PO HS Cholesterol Management #30 Ref 0 TAB Temazepam (Temazepam) 15 Mg Cap 15 MG PO HS PRN INSOMNIA #30 Ref 0 CAP Additional Information Patient examined. Assessment and plan formulated with Dayanna Kerman PA-C. I agree with the above. Michael Mosher DO Dec 11, 2016 14:46
--- NOTE | 2016-12-11 14:46 | HHI.DCPOC ---
Discharge Care Plan Diagnosis: (1) UTI (urinary tract infection) (2) Pneumonia (3) Generalized weakness (4) RADICULOPATHY, LUMBAR REGION Goals to Promote Your Health * To prevent worsening of your condition and complications * To maintain your health at the optimal level Directions to Meet Your Goals Take your medications as prescribed Follow your dietary instruction Follow activity as directed Keep your appointments as scheduled Take your immunizations and boosters as scheduled If your symptoms worsen call your PCP, if no PCP go to Urgent Care Center or Emergency Room Smoking is Dangerous to Your Health. Avoid second hand smoke Call the 24-hour hour crisis hotline for domestic abuse at Michael Mosher DO Dec 11, 2016 14:46
== END 2016-12-11 16:18 | disposition home or self-care (01) | DRG 689 ==
LOC: NEPC 17:31 → NEDA 21:44 → NEPHCDU 23:50 → N04B 12-09 23:55 → OBSVTOIN 12-10 09:15 → N04A 12-10 18:42
PROVIDERS: ADMIT Hospitalist; ATTEND Hospitalist
DX: N39.0 Urinary tract infection, site not specified (principal); J18.9 Pneumonia, unspecified organism; G40.909 Epilepsy, unspecified, not intractable, without status epilepticus; I45.10 Unspecified right bundle-branch block; R26.81 Unsteadiness on feet; M48.06 Spinal stenosis, lumbar region; G89.29 Other chronic pain; E78.5 Hyperlipidemia, unspecified; E03.9 Hypothyroidism, unspecified; R73.03 Prediabetes; I10 Essential (primary) hypertension; M19.90 Unspecified osteoarthritis, unspecified site; I49.1 Atrial premature depolarization; B96.20 Unspecified Escherichia coli [E. coli] as the cause of diseases classified elsewhere; Z85.828 Personal history of other malignant neoplasm of skin; Z88.0 Allergy status to penicillin
CPT/HCPCS: 70450; 71010; 71020; 71250; 76937; 80048; 80053; 81001; 82550; 83605; 83690; 83735; 84484; 85025; 85610; 85730; 86140; 87040; 87077; 87086; 87186; 87449; 93005; 96361; 96374; 96375; G8987-GP; G8988-GP; J0456; J0696; J2405; J3480; J7040; J7050